=== PATIENT | male | born 1955 | race Caucasian/White ===

== ENCOUNTER 2019-07-11 17:05 | Inpatient (IN) | payer OTHER ==
[~2019-07-11] VITALS: Ht 175.3 cm; Wt 128.8 kg
--- NOTE | 2019-07-11 17:38 | NUR ---
PT HERE WITH C/O CHF COMPLICATIONS SUCH SYNCOPE. PT STATES HE WAS JUST WALKING AT HOME AND "PASSED OUT." PT DENIES HITTING HEAD, NO VISIBLE SIGNS OF TRAUMA. PT AAO X 4, NAD, ROOM AIR, CALL LIGHT WITHIN REACH. PT DRESSED IN GOWN AND ON FULL MONITOR, SIDERAIL X [address] PIV ESTABLISHED AND LABS DRAWN.
[2019-07-11] MEDS ORDERED: HYDRALAZINE (17:50)
[2019-07-11] MEDS ORDERED: LISINOPRIL (17:50)
[2019-07-11] MEDS ORDERED: LASIX (17:50)
[2019-07-11] MEDS ORDERED: SPIRONOLACTONE (17:50)
[2019-07-11] MEDS ORDERED: METO25TA91 PO (17:50)
--- NOTE | 2019-07-11 17:51 | NUR ---
MED REC COMPLETED.
[2019-07-11] MEDS ORDERED: SODIUM CHLORIDE FLUSH 10ML SYR IVF ONE (18:00)
--- NOTE | 2019-07-11 18:06 | NUR ---
78% ON ROOM AIR, PLACED ON 2L NC.
[2019-07-11 18:27] LABS: BASOPHILS # (AUTO) 0.04 x10^3/uL (0-0.1); BASOPHILS % (AUTO) 1 % (0-1); EOSINOPHILS # (AUTO) 0.18 x10^3/uL (0-0.4); EOSINOPHILS % (AUTO) 3 % (1-7); LYMPHOCYTES # (AUTO) 1.54 x10^3/uL (1-3.4); LYMPHOCYTES % (AUTO) 26 % (22-44); MD NO; MEAN CORPUSCULAR HEMOGLOBIN 33.9 pg (27.5-34.5); MEAN CORPUSCULAR VOLUME 99.8 fL (81-97); MEAN PLATELET VOLUME 8.7 fL (7.4-10.4); MONOCYTES # (AUTO) 0.53 x10^3/uL (0.2-0.8); MONOCYTES % (AUTO) 9 % (2-9); NEUTROPHILS # (AUTO) 3.73 x10^3/uL (1.8-6.8); NEUTROPHILS % (AUTO) 62 % (42-75); PLATELET COUNT 265 x10^3/uL (130-400); RED BLOOD COUNT 4.26 x10^6/uL (4.38-5.82); RED CELL DISTRIBUTION WIDTH 14.2 % (9.4-14.8)
[2019-07-11 18:37] LABS: ALBUMIN 3.6 g/dL (3.4-5.0); ANION GAP 9 mmol/L (5-15); CALCIUM 8.5 mg/dL (8.5-10.1); CHLORIDE 103 mmol/L (98-107); CREATININE 2.39 mg/dL (0.7-1.3)
--- NOTE | 2019-07-11 18:58 | NUR ---
ALL RESULTS BACK AT THIS TIME, CHART UP FOR RECHECK BY MD. DUARTE AT BEDSIDE TO DISCUSS POC.
--- NOTE | 2019-07-11 19:10 | NUR ---
PER MD, PLAN FOR ADMIT.
[2019-07-11] MEDS ORDERED: SODIUM CHLORIDE FLUSH 10ML SYR IVF PRN (19:30)
[2019-07-11] MEDS ORDERED: ONDANSETRON ODT 4 MG PO PRN (20:00)
[2019-07-11] MEDS ORDERED: POLYETHYLENE GLYCOL 17 GM PACKET PO PRN (20:00)
[2019-07-11] MEDS ORDERED: BISACODYL 10 MG SUPP PR PRN (20:00)
--- NOTE | 2019-07-11 20:07 | NUR ---
REPORT GIVEN TO FELICIA KARIMI. PT TO TRANSFER TO INPATIENT STATUS.
[2019-07-11 20:35] VITALS: BP 189/99
[2019-07-11] MEDS ORDERED: ALBUTEROL SULFATE 2.5 MG/3 ML NPPB PRN (21:00)
[2019-07-11] MEDS ORDERED: METOPROLOL SUCCINATE 25 MG TAB.ER.24H PO SCH (21:00)
[2019-07-11] MEDS: HEPARIN 5,000 UNITS/ML, 1ML SQ SCH (21:09)
[2019-07-11] MEDS: SODIUM CHLORIDE 0.9% 1,000 ML IV SCH (21:10)
[2019-07-11 22:45] VITALS: BP_SYST 127; BP_SYST 133; BP_DIAS 77
[2019-07-12 04:02] VITALS: BP 173/106
[2019-07-12] MEDS: HEPARIN 5,000 UNITS/ML, 1ML SQ SCH ×3 (04:05→20:04)
[2019-07-12 04:23] LABS: MICROSCOPIC NOT IND
[2019-07-12] MEDS ORDERED: hydrALAzine 20 MG/ML, 1ML ONE (05:54)
[2019-07-12] MEDS ORDERED: hydrALAzine 20 MG/ML, 1ML IV PRN ×2 (06:00→18:00)
[2019-07-12 07:14] LABS: ANION GAP 6 mmol/L (5-15); CALCIUM 8.6 mg/dL (8.5-10.1); CHLORIDE 105 mmol/L (98-107); CREATININE 1.97 mg/dL (0.7-1.3)
[2019-07-12 07:17] LABS: TROPONIN I 0.065 ng/mL (0.000-0.045)
[2019-07-12 07:30] VITALS: BP 143/80
[2019-07-12] MEDS ORDERED: AMLODIPINE 10 MG TAB PO SCH (09:00)
[2019-07-12] MEDS ORDERED: AMLODIPINE 5 MG TABLET ONE (09:03)
[2019-07-12] MEDS ORDERED: ASPIRIN 81 MG TABLET CHEW ONE (09:03)
[2019-07-12] MEDS: METOPROLOL SUCCINATE 25 MG TAB.ER.24H PO SCH ×2 (09:50→20:04)
[2019-07-12] MEDS: ASPIRIN 81 MG TABLET CHEW PO SCH (09:50)
[2019-07-12] MEDS: SENNA/DOCUSATE TABLET PO SCH (09:51)
[2019-07-12] MEDS: SODIUM CHLORIDE 0.9% 1,000 ML IV SCH (09:52)
[2019-07-12 10:25] VITALS: BP 180/84
[2019-07-12 12:30] VITALS: BP 158/80
[2019-07-12] MEDS ORDERED: FUROSEMIDE 40 MG/4 ML IV SCH (17:00)
[2019-07-12 19:51] VITALS: BP 146/91
[2019-07-12] MEDS: ATORVASTATIN 40 MG TABLET PO SCH (20:05)
[2019-07-13 02:38] VITALS: BP 167/81
[2019-07-13] MEDS: HEPARIN 5,000 UNITS/ML, 1ML SQ SCH ×4 (05:16→20:55)
[2019-07-13 06:22] LABS: CHLORIDE 104 mmol/L (98-107)
[2019-07-13 06:32] LABS: ALANINE AMINOTRANSFERASE 56 U/L (12-78); ALBUMIN 3.3 g/dL (3.4-5.0); ALKALINE PHOSPHATASE 61 U/L (45-117); ANION GAP 7 mmol/L (5-15); BILIRUBIN,TOTAL 0.6 mg/dL (0.2-1.0); CALCIUM 8.4 mg/dL (8.5-10.1); CREATININE 1.48 mg/dL (0.7-1.3); TOTAL PROTEIN 6.6 g/dL (6.4-8.2)
[2019-07-13 07:30] VITALS: BP 171/73
[2019-07-13] MEDS: FUROSEMIDE 40 MG/4 ML IV SCH ×4 (09:00→20:48)
[2019-07-13] MEDS: POTASSIUM CHLORIDE 20 MEQ TAB.ER.PRT PO SCH (09:25)
[2019-07-13] MEDS: ASPIRIN 81 MG TABLET CHEW PO SCH (09:25)
[2019-07-13] MEDS: METOPROLOL SUCCINATE 25 MG TAB.ER.24H PO SCH (09:26)
[2019-07-13] MEDS: SENNA/DOCUSATE TABLET PO SCH (09:26)
[2019-07-13 10:46] VITALS: BP 123/82
[2019-07-13 14:15] VITALS: BP 146/78
[2019-07-13 20:38] VITALS: BP 168/81
[2019-07-13] MEDS: ACETAMINOPHEN 325 MG TABLET PO PRN (20:49)
[2019-07-13] MEDS: ATORVASTATIN 40 MG TABLET PO SCH (20:49)
[2019-07-14 01:27] VITALS: BP 161/76
[2019-07-14] MEDS: HEPARIN 5,000 UNITS/ML, 1ML SQ SCH ×3 (05:06→20:48)
[2019-07-14 06:21] LABS: CHLORIDE 102 mmol/L (98-107)
[2019-07-14 06:32] LABS: ALANINE AMINOTRANSFERASE 56 U/L (12-78); ALBUMIN 3.4 g/dL (3.4-5.0); ALKALINE PHOSPHATASE 60 U/L (45-117); ANION GAP 6 mmol/L (5-15); BILIRUBIN,TOTAL 0.7 mg/dL (0.2-1.0); CALCIUM 8.6 mg/dL (8.5-10.1); CREATININE 1.41 mg/dL (0.7-1.3); TOTAL PROTEIN 7.1 g/dL (6.4-8.2)
[2019-07-14 07:56] VITALS: BP 181/112
[2019-07-14] MEDS: ASPIRIN 81 MG TABLET CHEW PO SCH (08:17)
[2019-07-14] MEDS: FUROSEMIDE 40 MG/4 ML IV SCH ×3 (08:17→20:48)
[2019-07-14] MEDS: POTASSIUM CHLORIDE 20 MEQ TAB.ER.PRT PO SCH (08:17)
[2019-07-14] MEDS: SENNA/DOCUSATE TABLET PO SCH (08:17)
[2019-07-14 09:31] VITALS: BP 154/83
[2019-07-14 12:58] VITALS: BP 172/87
[2019-07-14 18:17] VITALS: BP 151/83
[2019-07-14 20:46] VITALS: BP 132/73
[2019-07-14] MEDS: ATORVASTATIN 40 MG TABLET PO SCH (20:48)
[2019-07-15 02:56] VITALS: BP 170/96
[2019-07-15] MEDS: HEPARIN 5,000 UNITS/ML, 1ML SQ SCH ×2 (05:00→12:59)
[2019-07-15 05:43] LABS: ALBUMIN 3.4 g/dL (3.4-5.0); CALCIUM 8.8 mg/dL (8.5-10.1); CHLORIDE 103 mmol/L (98-107)
[2019-07-15 05:50] LABS: ALANINE AMINOTRANSFERASE 53 U/L (12-78); ALKALINE PHOSPHATASE 60 U/L (45-117); ANION GAP 6 mmol/L (5-15); BILIRUBIN,TOTAL 0.4 mg/dL (0.2-1.0); TOTAL PROTEIN 7.4 g/dL (6.4-8.2); TROPONIN I 0.089 ng/mL (0.000-0.045)
[2019-07-15 06:37] VITALS: BP 158/78
[2019-07-15] MEDS: ACETAMINOPHEN 325 MG TABLET PO PRN (08:16)
[2019-07-15] MEDS: POTASSIUM CHLORIDE 20 MEQ TAB.ER.PRT PO SCH (08:16)
[2019-07-15] MEDS: ASPIRIN 81 MG TABLET CHEW PO SCH (08:16)
[2019-07-15] MEDS: SENNA/DOCUSATE TABLET PO SCH (08:17)
[2019-07-15] MEDS: FUROSEMIDE 40 MG/4 ML IV SCH (09:00)
== END 2019-07-15 13:30 | disposition home or self-care (01) | DRG 291 ==
LOC: ED 19:35 → EDIP 20:13 → 5SO 20:26 → DCLOUNGE 07-15 13:20
PROVIDERS: ADMIT Hospitalist; ATTEND Family Medicine
DX: I11.0 Hypertensive heart disease with heart failure (principal); I50.31 Acute diastolic (congestive) heart failure; Z68.41 Body mass index [BMI] 40.0-44.9, adult; N17.9 Acute kidney failure, unspecified; J96.10 Chronic respiratory failure, unspecified whether with hypoxia or hypercapnia; E66.01 Morbid (severe) obesity due to excess calories; Z82.49 Family history of ischemic heart disease and other diseases of the circulatory system; Z91.19 Patient's noncompliance with other medical treatment and regimen
CPT/HCPCS: 36415; 36600; 71045; 80048; 80053; 80307; 81003; 82040; 82607; 82803; 83880; 84484; 85025; 85379; 93005; 93306; 99285; G0378; J1644; J1940; J0360; J7030